=== PATIENT | male | born 1965 | race Hispanic/Latino ===

== ENCOUNTER 2019-09-13 17:30 | Observation (INO) | payer BC ==
[2019-09-13 18:07] LABS: #Basophils 0.1 thou/uL (0.0-0.2); #Eosinphils 0.2 thou/uL (0.0-0.7); #Lymphocytes 3.1 thou/uL (1.20-3.40); #Monocytes 0.7 thou/uL (0.11-0.59); #Neutrophils 2.5 thou/uL (1.40-6.50); %Basophils 1.3 % (0.0-1.0); %Eosinophils 3.5 % (0.0-10.0); %Lymphocytes 47.1 % (21.0-51.0); %Monocytes 10.6 % (0.0-10.0); %Neutrophils 37.5 % (42.0-75.0); Hemoglobin 14.5 g/dL (14.0-18.0); Mean Corpuscular HGB CONC 33.5 g/dL (32.0-36.0); Mean Corpuscular Hemoglobin 30.9 pg (27.0-31.0); Mean Corpuscular Volume 92.3 fL (78.0-98.0); Mean Platelet Volume 8.5 fL (7.4-10.4); Platelet Count 205 thou/uL (130-400); RBC Distribution Width 12.4 % (11.5-14.5); White Blood Cell (WBC) Count 6.6 thou/uL (4.8-10.8)
--- NOTE | 2019-09-13 18:08 | RAD ---
SINGLE VIEW CHEST: HISTORY: Chest pain. COMPARISON: 07/13/2009 FINDINGS: Single view of the chest show normal sized cardiomediastinal silhouette. There is no evidence of cons olidation, mass, or pleural effusion. The bones are unremarkable. IMPRESSION: No evidence of acute cardiopulmonary disease. POS: [facility]
[2019-09-13 18:28] LABS: ALT (SGPT) 29 U/L (8-55); AST (SGOT) 24 U/L (5-34); Albumin 4.1 g/dL (3.5-5.0); Alkaline Phosphatase 74 U/L (40-110); Anion Gap 13 mmol/L (10-20); BUN (Urea Nitrogen) 14 mg/dL (8.4-25.7); Bilirubin, Total 0.3 mg/dL (0.2-1.2); Calc. Creatinine Clearance 0 mL/min (70-130); Calcium 9.1 mg/dL (7.8-10.44); Carbon Dioxide 28 mmol/L (22-29); Chloride 104 mmol/L (98-107); Estimated GFR-MDRD 84; Globulin 3.1 g/dL (2.4-3.5); Glucose 113 mg/dL (70-105); Potassium 4.3 mmol/L (3.5-5.1); Protein, Total 7.2 g/dL (6.0-8.3); Sodium 141 mmol/L (136-145)
[2019-09-13] MEDS ORDERED: Aspirin Chewable 81 MG TAB ONE (18:36)
[2019-09-13 21:09] VITALS: BMI 28.7
[2019-09-13 21:39] LABS: Troponin I Less than 0.010 ng/mL (< 0.028)
[2019-09-14] MEDS ORDERED: Ketorolac Tromethamine 30 MG/ML VIAL IVP PRN (03:09)
[2019-09-14] MEDS ORDERED: Ketorolac Tromethamine 30 MG/ML VIAL IVP SCH (03:15)
[2019-09-14] MEDS ORDERED: HYDROcodone/Acetaminophen 7.5/325 mg Tablet PO PRN (07:22)
[2019-09-14] MEDS ORDERED: Acetaminophen 325 MG TAB PO PRN (07:22)
[2019-09-14] MEDS ORDERED: Ondansetron ODT 4 MG TAB PO PRN (07:22)
--- NOTE | 2019-09-14 08:07 | HP ---
PRIMARY CARE PROVIDER: Cedric Mix MD HISTORY OF PRESENT ILLNESS: The patient referred to the [facility] by [facility] for risk stratification for chest pain. The patient complains about pain in his left shoulder into his neck. This pain has been severe for 4 days, has been going on longer than that. It is continuous. It is worse with flexion of the neck and lateral rotation of the neck. He has numbness and tingling into his left arm. PAST MEDICAL HISTORY: None. MEDICATIONS: None. ALLERGIES: NONE. PAST SURGICAL HISTORY: Surgery on his left leg. FAMILY HISTORY: No coronary artery disease, diabetes, etc. SOCIAL HISTORY: . Full code status. , next of kin. Smokes five cigarettes a day. Drinks no alcohol. REVIEW OF SYSTEMS: GENERAL: No headaches, dizziness, or fainting. EYES: He wears glasses because he has a little blurry vision. No double vision, flashing light. EAR, NOSE, AND THROAT: No ear pain or drainage. No nasal bleeding. No trouble swallowing. CARDIAC: No exertional pressure or chest pain. No orthopnea. No paroxysmal nocturnal dyspnea. RESPIRATION: No cough, wheezing, or asthma. GASTROINTESTINAL: No nausea, vomiting, diarrhea, constipation, or abdominal pain. GENITOURINARY: No hematuria, dysuria, or nocturia. MUSCULOSKELETAL: No pain or swelling in his legs. NEUROLOGIC: No strokes, seizures, or focal weakness. PSYCHIATRIC: No anxiety or depression. SKIN: No bruising, bleeding or rash. HEME/LYMPH: No tender or swollen lymph nodes in axilla, inguinal, or cervical area. PHYSICAL EXAMINATION: GENERAL: He is alert, pleasant, cooperative gentleman, in no distress except for discomfort in his left neck, shoulder. VITAL SIGNS: Current, temperature 98.5, pulse 67, respirations 15, room air saturation 96%, blood pressure 112/55. HEAD, EYES, EARS, NOSE, AND THROAT: Reveal pupils are equal, round, and reactive to light. Extraocular movements are intact. Sclerae are white. Tympanic membranes are clear. Nose is clear. Oral mucous membranes are wet. Dental hygiene is good. NECK: Supple without jugular venous distention, adenopathy, or thyromegaly. He does have pain in his left shoulder into his left arm with rotation of his neck to the left and flexion of his neck. CHEST: Clear to auscultation and percussion. HEART: Had a regular rate and rhythm. First and second heart sounds are clear. There are no appreciated murmurs or gallops. ABDOMEN: Soft, bowel sounds are normal. There is no hepatosplenomegaly. No mass. No rebound. No bruits. EXTREMITIES: No cyanosis, clubbing, or edema. PULSES: Carotid, radial, femoral and dorsalis pedis pulses intact and full. SKIN: Warm and dry without bruises or rash. HEME/LYMPH: Reveal no tender or swollen lymph nodes in axilla, inguinal, cervical area. NEUROLOGIC: Cranial nerves 2 through 12 are intact. Deep tendon reflexes symmetric. In strength testing, he has mild decreased strength of the extensors of the left arm, otherwise intact. IMAGING: Chest x-ray, no cardiomegaly, CHF or infiltrate, reviewed by me. EKG, regular sinus rhythm. No ST-T abnormality, reviewed by me. LABORATORY DATA: Cardiac enzymes normal x3. BNP 21. Comprehensive metabolic profile normal except for blood sugar of 113. CBC unremarkable. ASSESSMENT: 1. No evidence of coronary artery disease risk factors, etc. 2. History and physical exam consistent with cervical radiculopathy. PLAN: The patient will be continued on Toradol. An MRI of the cervical spine has been ordered. We will follow up later today. Job ID: [id number]
--- NOTE | 2019-09-14 09:39 | MRI ---
CERVICAL SPINE MRI WITHOUT CONTRAST: Date: 09/14/2019 HISTORY: Cervical radiculopathy. COMPARISON: None. FINDINGS: Appropriate T1 marrow signal intensity of the cervical vertebra. Cervical spine vertebral body height s are maintained and there is no fracture. No significant STIR hyperintensity to suggest vertebral mellissa dy edema or ligamentous injury. Straightening of normal cervical lordosis is presumed to be positiona l. Visualized brain parenchyma, cervicomedullary junction, cervical cord, and the upper thoracic cord herbert ve a normal size and signal intensity. C2-C3: No significant central canal stenosis or significant neural foraminal narrowing. C3-C4: Broad based disc bulge abuts the thecal sac. There is no significant central canal stenosis. Right neural foramen is patent. Mild to moderate left foraminal narrowing due to uncovertebral and fa cet hypertrophy. C4-C5: Broad based disc osteophyte complex abuts the thecal sac and effaces the subarachnoid space. Mild deformity of the cervical cord, without cord hyperintensity. Mild central canal stenosis. Modera te bilateral foraminal narrowing, predominantly due to uncovertebral hypertrophy. C5-C6: Broad based disc osteophyte complex with a small central/right paracentral component. There i s flattening of the thecal sac. Subarachnoid space is maintained. No significant central canal stenos is. Mild bilateral foraminal narrowing due to uncovertebral hypertrophy. C6-C7: Broad based disc bulge abuts the thecal sac. There is a small central disc protrusion which d eforms the midline cervical cord, without cord hyperintensity. Mild central canal stenosis. Mild righ t and left foraminal narrowing due to uncovertebral hypertrophy. C7-T1: Broad based disc bulge abuts the thecal sac. Subarachnoid space is maintained. No significant central canal stenosis. Bilaterally, neural foramina are patent. IMPRESSION: Degenerative changes of the cervical spine as described above. No evidence of high grade central sajan l stenosis or high grade neural foraminal narrowing. POS: [facility]
[2019-09-14 15:38] VITALS: BP 131/81; TEMP 98.5
[2019-09-14] MEDS ORDERED: methylPREDNISolone Sod Succ 40 MG VIAL IVP SCH (16:00)
--- NOTE | 2019-09-15 08:12 | DIS ---
DATE OF ADMISSION: 09/13/2019 DATE OF DISCHARGE: 09/14/2019 PRIMARY CARE PROVIDER: Dr. Cedric Mix. HOSPITAL COURSE: The patient presented to the emergency room with neck pain, shoulder pain, had been bad for 4 days, and had some radiation to his chest, but no pressured chest pain, no cardiac symptoms. He was referred for cardiac evaluation. He is a nonsmoker. No family history of coronary artery disease. No hypertension. No diabetes, etc. Enzymes were normal. EKG was unremarkable. On examination, he had pain in his neck with flexion and left lateral rotation of his neck. There were no significant strength abnormalities on arm strength testing. An MRI of his neck reveals moderate narrowing on the left C3-C4, which is consistent with his area. He had some improvement with IV Toradol. He is being discharged on Medrol Dosepak and Tylenol No. 3 for followup with his PCP in 1 week. Job ID: [id number]
== END 2019-09-14 16:55 | disposition home or self-care (01) ==
LOC: ERS 17:30 → 2SW 21:00
PROVIDERS: ADMIT Hospitalist; ATTEND Hospitalist
DX: R07.9 Chest pain, unspecified (principal); M47.22 Other spondylosis with radiculopathy, cervical region; M48.02 Spinal stenosis, cervical region; M25.512 Pain in left shoulder; G89.29 Other chronic pain; M54.5 Low back pain; F17.210 Nicotine dependence, cigarettes, uncomplicated
CPT/HCPCS: 36415; 71045; 72141; 80053; 82550; 83880; 84484; 85025; 93005; 96374; 96375; 96376; G0378; J1885; J2920